=== PATIENT | female | born 1950 | race Caucasian/White ===

== ENCOUNTER → 2017-02-21 | Outpatient (CLI) | payer OTHER ==
--- NOTE | 2017-02-22 08:16 | MAMMOGRAPHY REPORT ---
BILATERAL DIGITAL SCREENING MAMMOGRAM WITH CAD: 02/21/2017 CLINICAL HISTORY: Routine screening. Patient has no complaints. TECHNIQUE: Current study was also evaluated with a Computer Aided Detection (CAD) system. Bilatera l CC and MLO views were obtained. COMPARISON: Comparison is made to exams dated: 02/16/2016 mammogram, 01/05/2015 mammogram, 01/02/2014 m ammogram, 01/01/2013 mammogram, 01/01/2012 mammogram, and 12/27/2011 mammogram - [facility]. BREAST COMPOSITION: The tissue of both breasts is heterogeneously dense, which may obscure small ma sses. FINDINGS: No suspicious masses, calcifications, or areas of architectural distortion are noted in e ither breast. There has been no significant interval change compared to prior exams. Scattered bila teral benign-appearing calcifications are not significantly changed. Oval mass within the left uppe r outer quadrant is stable dating back to at least the 2006 exam, and considered benign given long-t erm stability. IMPRESSION: ACR BI-RADS CATEGORY 2: BENIGN There is no mammographic evidence of malignancy. A 1 year screening mammogram is recommended. The p atient will receive written notification of the results. Approximately 10% of breast cancers are not detected with mammography. A negative mammographic repor t should not delay biopsy if a clinically suggestive mass is present. Rafaela Lima M.D. ah/:02/21/2017 15:28:03 Print Producer: Halie Mack RT(R)(M), [facility] letter sent: Normal 1/2 BI-RADS Code: ACR BI-RADS Category 2: Benign
== END | disposition home or self-care (01) ==
LOC: C.MAMM 14:36
PROVIDERS: ATTEND Obstetrics & Gynecology
DX: Z12.31 Encounter for screening mammogram for malignant neoplasm of breast (principal)

== ENCOUNTER → 2018-01-09 | Outpatient (CLI) | payer OTHER | END | disposition home or self-care (01) | LOC: C.PAPS 13:22 | PROVIDERS: ATTEND Obstetrics & Gynecology | DX: Z12.4 Encounter for screening for malignant neoplasm of cervix (principal) ==

== ENCOUNTER → 2018-02-27 | Outpatient (CLI) | payer OTHER ==
--- NOTE | 2018-02-28 15:34 | MAMMOGRAPHY REPORT ---
BILATERAL DIGITAL SCREENING MAMMOGRAM TOMOSYNTHESIS WITH CAD: 02/27/2018 CLINICAL HISTORY: Routine screening. Patient has no complaints. TECHNIQUE: Breast tomosynthesis in addition to standard 2D mammography was performed. Current study was also evaluated with a Computer Aided Detection (CAD) system. COMPARISON: Comparison is made to exams dated: 02/21/2017 mammogram, 02/16/2016 mammogram, 01/05/2015 ma mmogram, 01/02/2014 mammogram, 01/01/2013 mammogram, and 01/01/2012 ultrasound - [facility]. BREAST COMPOSITION: The tissue of both breasts is heterogeneously dense, which may obscure small mas ses. FINDINGS: There is an area of probable architectural distortion within the right lateral breast on th e CC tomosynthesis images, possibly projecting along the posterior nipple line on the MLO view. Sonu tionally, there is a probable focal area of architectural distortion within the right central breast, best seen on the CC tomosynthesis images. Recommend spot compression tomosynthesis views and possib le ultrasound for further evaluation. The remainder of both breasts are stable compared to prior exams, without suspicious masses, calcific ations, or areas of architectural distortion noted. Scattered bilateral benign-appearing calcificati ons are not significantly changed. Partially circumscribed and partially obscured 2.9 cm mass within the left lateral posterior breast is stable compared to multiple prior exams. IMPRESSION: ACR BI-RADS CATEGORY 0: INCOMPLETE EVALUATION: NEED ADDITIONAL IMAGING EVALUATION Two areas of probable right breast architectural distortion, for which additional imaging evaluation is recommended. The patient will be called to schedule an appointment. Approximately 10% of breast cancers are not detected with mammography. A negative mammographic report should not delay biopsy if a clinically suggestive mass is present. Rafaela Lima M.D. /:02/27/2018 15:37:58 Room Service Manager: Lucie BOONE(Rebeca)(Conrad), [facility] letter sent: Addl Imaging 0 BI-RADS Code: ACR BI-RADS Category 0: Incomplete Evaluation: Need Additional Imaging Evaluation
== END | disposition home or self-care (01) ==
LOC: C.MAMM 14:58
PROVIDERS: ATTEND Family Medicine
DX: Z12.31 Encounter for screening mammogram for malignant neoplasm of breast (principal); N64.89 Other specified disorders of breast

== ENCOUNTER 2018-05-27 08:20 | Day surgery (SDC) | payer OTHER ==
[2018-05-16 13:13] VITALS: BMI 24.0
[~2018-05-27] VITALS: Ht 162.6 cm; Wt 63.7 kg
--- NOTE | 2018-05-27 06:27 | History and Physical ---
History & Physical Date May 27, 2018. Chief Complaint abnormal Right breast bxs History of Present Illness The patient is a 67 year old female with h/o Rt br bxs at the breast center showing sclerosis and a papilloma- pt is for Rt breast bx times 3 with preop needle localization Additional History Hepatic Disease: No Endocrine Disorder: Yes (hypothyroid) Kidney Disease: No Hypertension: No Heart Disease: No Infectious Diseases: No Allergies Coded Allergies: Codeine (Verified Allergy, Unknown, NAUSEA, VOMITING, PALPITATIONS, 05/16/18 ) Home Medications Scheduled Acetaminophen-Caffeine (Excedrin Tension Headache), 1 TAB PO QAM Biotin (Biotin), 1 CAP PO QPM Estrogens, Conjugated (Premarin), 0.625 MG PO QAM Etanercept (Enbrel), 1 DOSE INJ SUNDAY Folic Acid (Folvite), 1 MG PO DAILY Levothyroxine Sodium (Levothyroxine Sodium), 1 TAB PO QPM Methotrexate (Methotrexate), 4 TAB PO SUNDAY Paroxetine (Paxil), 20 MG PO QAM Prednisone (Prednisone), 2.5 MG PO Q2D Sumatriptan Succinate (Imitrex), 25 MG PO PRN Scheduled PRN [Oxybutynin ], 10 MG PO UD PRN for PRN Physical Examination Skin: warm/dry Head: atraumatic Neck: supple Respiratory/Chest: no respiratory distress Cardiovascular: regular rate, rhythm Abdomen / GI: non tender Neurologic/Psych: alert Diagnosis Abnormal Right breast biopsies Plan of Treatment for Right breast biopsy times 3 using preop needle localization at the breast center probable observation post op
[~2018-05-27 08:20] MED LIST: ACETTAB15 PO; BIOT1CAP9 PO; CEFAZOLIN 2000MG IV PUSH 15 ML IV SCH; ETAN50IN2 INJ; FOLI1TAB8 PO; LACTATED RINGER'S 1000ML 1,000 ML IV SCH; LEVO75TA5 PO; METH2.5T PO; OXYBUTYNIN PO; PARO1TAB27 PO; PRD/25 PO; PRM625 PO; SUMA25TA12 PO
[2018-05-27] MEDS ORDERED: FENTANYL CITRATE INJ 50 MCG/1 ML 2 ML VIAL ONE ×2 (09:31→11:07)
[2018-05-27] MEDS ORDERED: MIDAZOLAM HCL 1 MG/ML 2ML VIAL ONE (09:31)
[2018-05-27] MEDS ORDERED: PROMETHAZINE HCL INJ 6.25 MG in SODIUM CHLORIDE 0.9% 50ML 50 ML IV PRN (09:45)
[2018-05-27] MEDS ORDERED: EpHEDrine SULFATE INJ 50 MG/ML AMP IV PRN (09:45)
[2018-05-27] MEDS ORDERED: ATROPINE SULFATE 0.1 MG/ML 5ML SYR IV PRN (09:45)
[2018-05-27] MEDS ORDERED: FENTANYL CITRATE INJ 50 MCG/1 ML 2 ML VIAL IV PRN (09:45)
[2018-05-27] MEDS ORDERED: ONDANSETRON INJ 2 MG/ML 2 ML VIAL IV PRN ×2 (09:45→11:45)
[2018-05-27 09:46] VITALS: BP 167/68; PULSE 77; TEMP 36.7; O2SAT 98; Ht 162.6 cm; Wt 63.7 kg
[2018-05-27] MEDS ORDERED: BUPIVACAINE 0.5 % 5 MG/1 ML PF 10ML VIAL ONE (09:52)
[2018-05-27] MEDS ORDERED: METHYLENE BLUE 0.5% 10 ML VIAL ONE (09:52)
[2018-05-27] MEDS ORDERED: ONDANSETRON INJ 2 MG/ML 2 ML VIAL ONE (10:45)
[2018-05-27] MEDS ORDERED: PROPOFOL IV EMULSION 10 MG/ML 20 ML VIAL ONE (10:45)
[2018-05-27] MEDS ORDERED: EpHEDrine SULFATE INJ 50 MG/ML AMP ONE (10:45)
[2018-05-27] MEDS ORDERED: DEXAMETHASONE SOD INJ 4 MG/ML VIAL ONE (10:45)
[2018-05-27] MEDS ORDERED: LIDOCAINE HCL 2% 2 ML VIAL (20MG/ML) ONE (10:45)
[2018-05-27] MEDS ORDERED: PHENYLEPHRINE 100MCG/ML 5ML SYR ONE (11:03)
--- NOTE | 2018-05-27 11:38 | [facility] Operative Report ---
Operative Report Operative Date May 27, 2018. Pre-Operative Diagnosis Abnormal Right Breast Biopsies x3 Post-Operative Diagnosis same Procedure(s) Performed Rt breast needle loc bx x [address] Ivan Director [facility] Surgeon(s) MALIKA Jamison Estimated Blood Loss 10 ml Specimens A. T-shaped clip, additional deep/medial tissue- meth blue new margin B. 5 cm needle, superficial tissue- Dumbell shaped clip C. 7.5 cm needle- wire clip, additional superficial tissue , more proximal needle- Meth blue- new margin tissue to chest wall Drains None Anesthesia Type General Complication(s) none Disposition Recovery Room / PACU I attest to the content of the Intraoperative Record and any orders documented therein. Any exceptions are noted below.
[2018-05-27] MEDS ORDERED: HYDROCODONE/ACETAMIN 5/325MG TAB PO PRN ×2 (11:45)
[2018-05-27] MEDS ORDERED: HYDR-5688 PO (11:45)
--- NOTE | 2018-05-27 11:47 | Discharge Instructions ---
Discharge Instructions Date of Service May 27, 2018. Visit Reason for Visit: Abnormal Mammogram Of Right Breast Discharge Discharge Diagnosis / Problem: abnormal breast biopsies Discharge Goals Goal(s): Decrease discomfort, Improve function, Improve disease control Activity Recommendations Activity Limitations: as noted below Lifting Limitations: no more than 25 pounds Exercise/Sports Limitations: until after follow-up appointment May Resume Sexual Activity: when tolerated Shower/Bathe: keep incision dry (may shower over incision in 2 days- 05/29) Driving or Machine Use: resume 1 day after discharge Anesthesia . Post Anesthesia Instructions: If you have had General Anesthesia or IV Sedation: * Do not drive today. * Resume driving when surgeon permits. * Do not make important decisions or sign legal documents today. * Call surgeon for: 1. Temperature elevations greater than 101 degrees F. 2. Uncontrollable pain. 3. Excessive bleeding. 4. Persistent nausea and vomiting. 5. Medication intolerance (nausea, vomiting or rash). * For nausea and vomiting use only clear liquids such as: tea, soda, bouillon until nausea subsides, then gradually increase diet as tolerated. * If you have any concerns or questions, call your surgeon's office. If physician is unavailable and it is an emergency, call 911 or go to the nearest emergency room. . Instructions / Follow-Up Instructions / Follow-Up SPECIAL CARE INSTRUCTIONS: * Cover incisions and change daily for comfort/drainage. * Leave steri strips in place * May use ibuprofen for pain as tolerated. * Expect some swelling and bruising. Call your doctor if: * Temperature above 101 degrees * Pain not relieved by pain medicine ordered * There is increased drainage or redness from any incision * You have any unanswered questions or concerns [phone]. FOLLOW UP VISIT: If not already scheduled, please call the office for a follow-up visit. for 2 weeks- check up OFFICE PHONE NUMBER: Dr. Ivan Office Diet Recommendations Recommended Home Diet: resume previous diet Procedures Procedures Performed: Rt breast needle loc bx x 3 Pending Studies Studies pending at discharge: no Medical Emergencies . Who to Call and When: Medical Emergencies: If at any time you feel your situation is an emergency, please call 911 immediately. . Non-Emergent Contact Non-Emergency issues call your: Primary Care Provider, Surgeon . . "Provider Documentation" section prepared by Jose Carlos Ivan. .
--- NOTE | 2018-05-27 12:27 | OPERATIVE REPORT ---
DATE OF OPERATION: 05/27/2018 NAME OF OPERATION: Needle localization, right breast biopsy x3. STAFF SURGEON: Jose Carlos Ivan MD SOAP GRINDER: Harsh Haque PA-C. ANESTHESIA: General. DESCRIPTION OF PROCEDURE: The patient was brought in the operating room and placed on the operating table in supine position. Her right breast was prepped and draped in usual fashion. She had 3 needles placed in the lateral breast which corresponded with different shaped clips within the breast. The gross appearance of the needles was different from my perspective than the actual image. I was able to make a curvilinear incision between the 3 needles and excise all 3 areas through one incision. The initial tissue was the most posterior needle which actually traversed anteriorly to the retroareolar area. This was the T-shaped clip. I also took additional deep medial tissue and marked the new margin with methylene blue. The second specimen which was B was a 5 cm needle and the tissue was the most superficial tissue and this was the dumbbell-shaped clip. All specimens were placed into the Faxitron and images sent to Dr. Coleman and we did discuss these findings on the phone. The part C tissue was a 7.5 cm needle which grossly in the lateral area was most anterior, but it was apparently the deepest and it corresponded with the wire-shaped clip. This tissue actually went down to the chest wall. The clip was relatively close to the more superficial edge of the tissue; therefore, additional superficial tissue was taken as part D and it was marked with methylene blue as superficial and inferior tissue. After all tissue was sent, the deep tissue was reapproximated using 2-0 plain suture. I also placed 2 clips at the area of the T-shaped clip and at the area of the wire-shaped clip. The skin was reapproximated using subcuticular 5-0 Monocryl and Steri-Strips. Dressing applied and the patient transferred to the recovery room in stable condition. My nutrition assistant helped with prepping, draping, excision of all the tissue and closure of the wounds. I attest to the content of the Intraoperative Record and any orders documented therein. Any exception s are noted below.
[2018-05-27 12:30] VITALS: BP 114/51; PULSE 93; TEMP 36.8; O2SAT 94
[2018-05-27 13:00] VITALS: BP 119/56; PULSE 95; O2SAT 94
--- NOTE | 2018-05-27 13:10 | MAMMOGRAPHY REPORT ---
MULTIPLE NEEDLE LOCALIZATION RIGHT BREAST: 05/27/2018 CLINICAL HISTORY: 67-year-old woman presents for preoperative needle localization and surgical excisi on of 2 biopsy-proven complex sclerosing lesions and a papilloma in the right breast. COMPARISON: Comparison is made to exams dated: 04/11/2018 ultrasound biopsy, 04/11/2018 mammogram, 03/20 stereotactic biopsy, 03/20/2018 ultrasound biopsy, and 03/20/2018 mammogram - [facility]. PATIENT CONSENT: The risks of the procedure were explained to the patient and informed consent was ob tained. A timeout was performed in the right breast was confirmed as the site for preoperative local ization. The patient denied allergy to lidocaine. PROCEDURE DESCRIPTION: Prior imaging exams of the right breast including postprocedure mammograms edilma ed 04/11/2018 and 03/20/2018, prior ultrasounds and ultrasound-guided core biopsies dated 04/11/2018, 03/20, 03/06/2018, diagnostic mammograms dated 03/06/2018 and stereotactic biopsies performed 03/20/2018 were reviewed. The dumbbell, weighing an T-shaped biopsy marker clips in the right breast are the in tended targets for localization. With the patient in the seated position, the right breast was placed in lateralmedial compression. A right lateral medial projection was obtained which demonstrates all 3 biopsy marker clips within th e targeting window, which is an alphanumeric grid. The skin of the lateral right breast was cleansed with alcohol. First the dumbbell-shaped clip located most posteriorly in location was targeted. 1% buffered Lidocaine without epinephrine was administered as local anesthesia. A 5cm Baeza II needle and wire combination was inserted into the breast. Second, the wing-shaped clip was targeted with a dditional 1% buffered lidocaine and a 7.5 cm Baeza II needle/wire. Third, the T-shaped clip in the central right breast was targeted with additional 1% buffered lidocaine and another 7.5 cm Baeza I I needle/wire. Optimal positioning was confirmed and all [address] wires were [address] in [address], leaving both the needles and wires within the breast, as per surgeon's preference. The entire procedure including approach and needle lengths were discussed with the operating surgeon prior to surgery. The patient tolerated the procedure well and there was no immediate complication. She was sent to the operating room in satisfactory condition. 3 specimen radiographs were obtained. A biopsy marker clip is located within each surgical specimen in addition to portion of the localizing needle and wire. The wing-shaped clip is located near one e dge of the specimen and I requested the surgeon take additional superficial tissue from that site. IMPRESSION: NEEDLE LOCALIZATION Status post preoperative needle and wire localization 3 in the right breast. The imaged specimen in clude the intended abnormalities. The patient will receive notification of the final pathology results from her referring physician. Sarah Coleman M.D. ay/:05/27/2018 12:39:43 Attending Technologist: Katherine Fitzgerald RT(R)(M), [facility] Senior Lead Developer: Halie Mack RT(R)(M), [facility]
--- NOTE | 2018-05-27 13:10 | MAMMOGRAPHY REPORT ---
SPECIMEN: 05/27/2018 CLINICAL HISTORY: 67-year-old woman with 2 biopsy-proven complex sclerosing lesions and a biopsy-prov en papilloma in the right breast. She presents for preoperative needle and wire localization 3, prio r to excisional biopsies. IMPRESSION: SPECIMEN Please refer to the report from right breast needle localization with imaging performed at the [facility] for full detail. Sarah Coleman M.D. ay/:05/27/2018 10:14:08 [employer]: RT Palak(Rebeca)(M), [facility]
--- NOTE | 2018-05-27 13:11 | Anesthesiology Progress Note ---
Anesthesia Post Op Note Date & Time May 27, 2018 at 13:11 Vital Signs Pain Intensity: 0 Vital Signs Past 12 Hours Date Time Temp Pulse Resp B/P (MAP) Pulse Ox O2 Delivery O2 Flow Rate FiO2 05/27/18 13:00 95 16 119/56 94 Room Air 05/27/18 12:30 36.8 93 18 114/51 94 Room Air 05/27/18 12:22 93 16 92 05/27/18 12:22 92 16 05/27/18 12:21 115/66 05/27/18 12:17 94 20 05/27/18 12:17 36.7 97 Room Air 05/27/18 12:17 94 20 96 05/27/18 12:16 122/60 05/27/18 12:13 94 20 05/27/18 12:13 94 20 93 05/27/18 12:11 120/58 05/27/18 12:08 95 14 93 05/27/18 12:08 96 14 05/27/18 12:07 93 19 05/27/18 12:07 92 19 94 05/27/18 12:06 117/57 05/27/18 12:02 93 18 05/27/18 12:02 93 18 99 05/27/18 12:01 125/70 05/27/18 11:57 94 13 05/27/18 11:57 96 13 100 05/27/18 11:56 130/75 05/27/18 11:55 96 16 05/27/18 11:55 96 16 99 05/27/18 11:51 122/55 05/27/18 11:50 101 28 100 05/27/18 11:50 101 28 05/27/18 11:46 127/75 05/27/18 11:45 98 19 77 05/27/18 11:45 107 19 05/27/18 11:45 36.0 100 16 127/75 100 Oxymask 10 05/27/18 09:46 36.7 77 18 167/68 (101) 98 Room Air Notes Mental Status: alert / awake / arousable, participated in evaluation Pt Amnestic to Procedure: Yes Nausea / Vomiting: adequately controlled Pain: adequately controlled Airway Patency, RR, SpO2: stable & adequate BP & HR: stable & adequate Hydration State: stable & adequate Anesthetic Complications: no major complications apparent
[2018-05-27 13:30] VITALS: BP 106/67; PULSE 94; TEMP 36.8; O2SAT 95
== END 2018-05-27 13:50 | disposition home or self-care (01) ==
LOC: C.ACU 08:20
PROVIDERS: ATTEND Surgery
DX: D24.1 Benign neoplasm of right breast (principal); M06.9 Rheumatoid arthritis, unspecified; E03.9 Hypothyroidism, unspecified; Z88.5 Allergy status to narcotic agent